=== PATIENT | female | born 1980 | race Caucasian/White ===

== ENCOUNTER 2016-08-09 18:10 | Observation (INO) | payer OTHER ==
[~2016-08-09] VITALS: Ht 167.6 cm; Wt 124.7 kg
--- NOTE | ~2016-08-09 | H ---
[facility] [place] [address] HISTORY AND PHYSICAL Name: OSWALDO CHOI Room #: 542-P [facility]..#: [id number] Admission: 08/09/16 Attend Phys: Grupo Winchester DO Discharge: Date of : 78 Report #: [id number] THIS REPORT FOR: //name// CC: [facility] physician/PCP Harpreet Peterson DICTATED BY: Migdalia DALLAS DATE OF SERVICE: 08/09/2016 ATTENDING PHYSICIAN: Dr. Peterson. PRIMARY CARE PHYSICIAN: None. CHIEF COMPLAINT: Back pain. HISTORY OF PRESENT ILLNESS: The patient is a 36-year-old female who says she slipped on the bottom step earlier today and fell on to her buttocks. She was able to get up and ambulate initially without difficulty. 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 When she tried to ambulate, her pain would intensify. She tried some ibuprofen without any relief. She denies any bowel or bladder incontinence. Denies any pain down either leg and denies any numbness or tingling or weakness in the legs. She has never had this type of pain before and denies any prior back problems. PAST MEDICAL HISTORY: None. PAST SURGICAL HISTORY: None. ALLERGIES: None. HOME MEDICATIONS: None. SOCIAL HISTORY: The patient recently moved back to the [facility] from [place]. She now lives with her spouse, niece and nephew and a friend. She does smoke a half pack of cigarettes per day. She has been smoking for at least 23 years. She drinks alcohol rarely. Denies any drug use. 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 FAMILY HISTORY: Her mother of breast cancer and had diabetes. Her father is and had ALS and also had diabetes. REVIEW OF SYSTEMS: Twelve point review of systems was reviewed with the patient, otherwise negative unless stated in the HPI. [address] [address] HISTORY AND PHYSICAL Name: OSWALDO CHOI Room #: 542-P [facility]#: [id number] Admission: 08/09/16 Attend Phys: Grupo Winchester DO Discharge: Date of : 78 Report #: [id number] PHYSICAL EXAMINATION: GENERAL: The patient is an alert female in no acute distress. VITAL SIGNS: Temperature 37.1, heart rate 78, respirations 18, blood pressure is 136/85, oxygen is 99% on room air. HEENT: PERRLA. Sclerae is nonicteric. Oral mucosa is pink and moist. NECK: Supple, no JVD noted. CARDIOVASCULAR: Normal S1, S2. No murmurs, rubs or gallops. RESPIRATORY: Breath sounds with diffuse scattered expiratory wheezes bilaterally. ABDOMEN: Soft, nontender, nondistended with positive bowel sounds. VASCULAR: No edema noted. Pedal pulses are 2+. NEUROLOGIC: The patient is alert and oriented x 3. Speech is clear. She really does not have any weakness in her lower extremities. There is no numbness in the lower extremities. I did not have her ambulate. PSYCHIATRIC: The patient is cooperative but as I was in the room, she was on the phone with her and was in an argument, and they were yelling at each other. LABORATORY DATA AND DIAGNOSTICS: UA was negative. The urine HCG was negative and labs were all pending. X-ray of the lumbar spine was negative and shows no fracture. CT of the back was pending. ASSESSMENT AND PLAN: 1. Intractable low back pain and inability to walk. CT of the spine just came back showing diffused disk bulging of L4-L5 with mild central stenosis. This is likely the cause of her pain. We will work with scheduled ibuprofen and prednisone and try to decrease any swelling. She may be a candidate to have an outpatient steroid injection with pain management. We will have PT and OT evaluate as well. She does not have any incontinence or radiculopathy symptoms at this time. Continue with pain control as well. 2. Tobacco abuse. The patient has been advised to quit. She did request a nicotine patch. 3. Deep venous thrombosis prophylaxis, place sequential compression devices. We will continue to follow the patient closely throughout the hospitalization and make changes based on clinical status. <ELECTRONICALLY SIGNED> By: Harpreet Peterson MD 08/11/16 1305 [id number] 1155 Harpreet Peterson MD /nt
[2016-08-09 18:11] VITALS: BP 136/85
[2016-08-09 18:43] LABS: URINE BILIRUBIN NEGATIVE (Negative); URINE BLOOD NEGATIVE (Negative); URINE COLOR YELLOW; URINE GLUCOSE-RANDOM* NEGATIVE (Negative); URINE KETONES NEGATIVE (Negative); URINE LEUKOCYTES-REFLEX NEGATIVE (Negative); URINE PROTEIN (DIPSTICK) NEGATIVE (Negative); URINE UROBILINOGEN 0.2 E.U./dl (0.2-1.0)
[2016-08-09] MEDS ORDERED: MOBIC15 MG PO (20:20)
[2016-08-09] MEDS ORDERED: FLEXERIL PO (20:20)
[2016-08-09] MEDS ORDERED: MEDROLDOSEPACK PO (20:20)
[2016-08-09 20:50] LABS: ABSOLUTE NEUTROPHILS 8.5 thou/uL (1.4-8.2); BASOPHILS 0.3 % (0.0-2.0); EOSINOPHILS 0.7 % (0.0-3.0); HEMOGLOBIN 12.5 gm/dL (12.0-15.0); MCH 25.2 pg (26.0-34.0); MONOCYTES 3.6 % (1.0-8.0); PLATELET COUNT 279 thou/uL (150-400); POLYS 82.4 % (36.0-66.0); RBC 4.94 mil/uL (4.20-5.00); RDW 16.4 % (10.5-14.5); WBC 10.3 thou/uL (4.0-11.0)
[2016-08-09 20:51] LABS: MANUAL DIFF NO
[2016-08-09 21:00] LABS: CREATININE 0.7 mg/dL (0.6-1.0); POTASSIUM 4.2 mmol/L (3.5-5.1)
[2016-08-09 21:32] VITALS: BP 127/79
[2016-08-09 21:39] VITALS: BP 128/74
[2016-08-10 07:35] VITALS: BP 110/61
[2016-08-10 16:10] VITALS: BP 131/63
[2016-08-10 20:00] VITALS: BP 127/57
[2016-08-11 04:00] VITALS: BP 107/64
[2016-08-11 08:15] VITALS: BP 132/77
[2016-08-11] MEDS ORDERED: CYCLOBENZAPRINE5 MG PO (10:29)
[2016-08-11] MEDS ORDERED: PERCOCET PO (10:29)
[2016-08-11] MEDS ORDERED: MEDROLDOSEPACK PO (10:29)
[2016-08-11] MEDS ORDERED: PERCOCET 5-3251 EACH PO (12:33)
[2016-08-11 12:38] VITALS: BP 132/77
== END 2016-08-11 13:35 | disposition home or self-care (01) ==
LOC: ER 18:10 → 5S 20:34 → EROBS 20:34 → 5S 21:33
PROVIDERS: Physician Assistant
DX: M54.89 Other dorsalgia (principal); I82.4Z9 Acute embolism and thrombosis of unspecified deep veins of unspecified distal lower extremity; Z72.0 Tobacco use